=== PATIENT | female | born 1940 | race Caucasian/White ===

== ENCOUNTER 2023-07-29 13:05 | Emergency (ER) | payer MEDICARE, OTHER, SELFPAY ==
[2023-07-29 13:07] VITALS: BP 143/95
--- NOTE | 2023-07-29 13:49 | ED.GENMED ---
History of Present Illness
General
Chief Complaint: Musculo-Skeletal Complaint
Source: patient
Time Seen by Provider: 07/29/23 13:40
Travel History
Have you had any contact with someone who has COVID-19?: No
Do you have any symptoms of coronavirus? Fever > 100 degrees, chills, cough, shortness of breath, sore throat, loss of taste or smell, muscle aches, or headache?: No
History of Present Illness
History of Present Illness:
83-year-old female with past medical history of hyperlipidemia presenting to the emergency department after she was up on a ladder and while going down the ladder she thought she was at the bottom but was on the second rung and this caused her to
fall backwards and towards a cabinet and the ladder also fell on towards the patient injuring her left shoulder. Patient states she is having soreness to the shoulder but most of her pain is concentrated around the left rib and thoracic region and
pain that worsens with deep inspiration. Patient denies any head injury, loss consciousness, vomiting, visual changes or any other concerns. She did not take anything for pain prior to arrival and is declining anything for pain here. Denies any
previous history of injury or fracture. Patient is also denying any use of anticoagulants.
Past History
Past History
ED Past Medical History: GERD, Hypercholesterolemia and Other (Arthritis)
ED Past Surgical History: Cholecystectomy, Gynecological (Hysterectomy) and Orthopedic (Laminectomy, bilateral knee surgery, left foot surgery)
Social History
Tobacco: Non-smoker
Alcohol: None
Drug: None
Personal:
Living: with family
Employment: Retired
Family History
Family History: CAD
Review of Systems
Review of Systems
All Other Systems: ROS reviewed and negative except as documented in HPI and ROS
Phy Exam
Physical Exam
Physical Exam:
GENERAL: Alert , in no apparent distress at rest but appears more uncomfortable with deep inspiration or attempted movement
EYE: conjunctiva clear
NECK: Supple
ENT: o/p clr, mmm.
CARDIAC: Regular rate and rhythm
LUNGS: Clear breath sounds bilaterally, no acute respiratory distress, no wheezes/rales/rhonchi
Chest wall: Moderate tenderness around ribs 6 and 7 along the left posterolateral chest wall. Pain worsens with deep inspiration. No palpable bony step-off
NEUROLOGICAL: Alert and oriented
SKIN: Warm and dry, skin intact.
MUSCULOSKELETAL: well perfused. Left upper extremity: No obvious deformity, decreased range of motion of the left shoulder secondary some mild pain. No focal tenderness palpation
PSYCH: Normal and appropriate interaction.
Scores
Heart Failure Risk
Heart Failure Risk Score: Not Applicable
Heart Score for Chest Pain Patients
STEMI patient?: Not applicable
Withdrawal Assessment of Alcohol
Withdrawal Assessment Completed?: Not applicable
Course
Orders/Labs/Results
Orders:
Orders
07/29/23 13:11
CR Ribs-left 3 Vw W/pa Chest Urgent
Comment:
Reason For Exam: fall
Shoulder, Left, Trauma CR [CR Shoulder, Trauma - Left] Urgent
Comment:
Reason For Exam: fall
Vital Signs
Initial and Last Documented VS:
Initial Vital Signs
Temp Pulse BP Pulse Ox
98.2 F 68 143/95 99
07/29/23 13:07 07/29/23 13:07 07/29/23 13:07 07/29/23 13:07
Last Documented Vital Signs
Temp Pulse BP Pulse Ox
98.2 F 68 143/95 99
07/29/23 13:07 07/29/23 13:07 07/29/23 13:07 07/29/23 13:07
MDM/Problems Addressed
Differential Diagnosis Includes:
Rib fracture, rib contusion, pneumothorax, hemothorax, left shoulder contusion, fracture, dislocation
MDM/Problems Addressed:
83-year-old female presenting to the emergency department for evaluation of left shoulder and rib injury following an accidental fall from a ladder. Patient on initial exam was reading a book and appeared very comfortable at rest but pain was
certainly worse with palpation as well as deep inspiration. An x-ray of the left shoulder and rib series was ordered from triage. Reassessment following. Patient declining anything for pain.
*Radiology
Radiology exam reviewed: preliminary read by ED provider (Rib series shows 1/7 rib fracture but no pneumothorax or effusions. Shoulder x-ray unremarkable)
*Pulse Oximetry
Patient hypoxic: no
*Critical Care Note
Total Time (30-74mins, 75-104mins- exclusive of procedures): Not Applicable
Patient Management
Escalation/DeEscalation of care consider admission/obs:
Patient's x-ray does show 1/7 rib fracture on the left. No complications from this. Pain is seemingly well-controlled. Patient continues to decline any medications. She was provided with an incentive spirometer. Will follow-up with primary care
physician as an outpatient. Aware of return precautions but otherwise stable for discharge home.
ED Attending Note
-
Portions of this chart may have been created with voice recognition software.� Occasional wrong word or��sound alike� substitutions may have occurred due to the inherent limitations of voice recognition software.
Discharge Plan
Departure
Patient Disposition: Home (Routine Discharge)
Date of Disposition: 07/29/23
Time of Disposition: 15:29
Patient with high blood pressure during this ER visit?: Yes
Discharge Problem:
Left rib fracture, Left shoulder pain, Fall from ladder
Instructions: Rib Fracture (DC)
Prescriptions:
No Action
cetirizine 10 MG tablet
10 mg PO DAILY
aspirin 325 MG tablet
650 mg PO DAILY
ascorbic acid (vitamin C) [Vitamin C] 500 MG tablet
1,000 mg PO DAILY
Sarath's wort 300 MG capsule
600 mg PO DAILY
Referrals:
Niko Jonas MD [Family Provider] -
Interventions
Interventions:
*Risk Screen - Suicide Last Done: 07/29/23 14:14
*Neglect/Abuse Screening Last Done: 07/29/23 14:14
*Nursing Disposition Last Done: 07/29/23 15:37
Discharge Date and Time
Discharge Date/Time: 07/29/23 15:39
== END 2023-07-29 15:39 | disposition home or self-care (01) ==
LOC: EMR 13:05
PROVIDERS: EMERGENCY PHYSICIAN Emergency Medicine; FAMILY PHYSICIAN Family Medicine
DX: S22.32XA Fracture of one rib, left side, initial encounter for closed fracture (principal); M25.512 Pain in left shoulder; W11.XXXA Fall on and from ladder, initial encounter; E78.00 Pure hypercholesterolemia, unspecified; K21.9 Gastro-esophageal reflux disease without esophagitis; M19.90 Unspecified osteoarthritis, unspecified site; Z82.49 Family history of ischemic heart disease and other diseases of the circulatory system; Z90.49 Acquired absence of other specified parts of digestive tract; Z90.710 Acquired absence of both cervix and uterus
CPT/HCPCS: 99283; 71101; 73030

== ENCOUNTER → 2023-10-03 10:10 | Outpatient (REF) | payer MEDICARE, OTHER, SELFPAY ==
[2023-10-04 16:00] LABS: Endomysial IgA Antibody Titer <1:10 (<1:10)
[2023-10-06 00:01] LABS: IgA 216 mg/dl (70-400)
[2023-10-08 16:47] LABS: tTG IgA Antibody 5.6 EU/ml (0-19); tTG IgG Antibody 6.9 EU/ml (0-19)
== END ==
LOC: REG 10:10
PROVIDERS: ATTENDING PHYSICIAN Family Medicine
DX: R10.9 Unspecified abdominal pain (principal)
CPT/HCPCS: 36415; 82784; 83516; 86231

== ENCOUNTER → 2023-12-05 09:06 | Outpatient (REF) | payer MEDICARE, OTHER, SELFPAY ==
[2023-12-05 09:59] LABS: % Basophils 0.8 % (0-2); % Eosinophils 2.1 % (0-6); % Immature Granulocytes 0.6 % (0-0.5); % Lymphocytes 23.6 % (20.5-51.1); % Monocytes 9.2 % (1.7-9.3); % Neutrophils 63.7 % (42.2-75.2); Absolute Basophils 0.1 10^3/uL (0-0.2); Absolute Eosinophils 0.2 10^3/uL (0-0.7); Absolute Immature Granulocytes 0.1 10^3/uL (0-0.05); Absolute Lymphocytes 2.4 10^3/uL (1.2-3.4); Absolute Monocytes 0.9 10^3/uL (0.1-0.6); Absolute Neutrophils 6.5 10^3/uL (1.4-6.5); Hematocrit 47.1 % (37.0-47.0); Hemoglobin 15.2 g/dL (12.0-16.0); Mean Corp Hgb Conc. 32.3 g/dL (33.0-37.0); Mean Corpuscular Hgb 30.7 pg (27.0-31.0); Mean Corpuscular Volume 95.2 fL (81.0-99.0); Mean Platelet Volume 9.7 fL (7.4-10.4); Nucleated Red Blood Cells % 0 %; Platelet Count 277 10^3/uL (130-400); Red Blood Cell Count 4.95 10^6/uL (4.20-5.40); White Blood Cell Count 10.2 10^3/uL (4.8-10.8)
[2023-12-05 10:48] LABS: AST (SGOT) 32 U/L (14-36); Albumin 3.8 g/dl (3.5-5.0); Alkaline Phosphatase 95 U/L (38-126); Blood Urea Nitrogen 16 mg/dl (7-17); Calcium 9.7 mg/dl (8.4-10.2); Carbon Dioxide 25 mmol/L (22-30); Glucose 92 mg/dl (70-99); HDL Cholesterol 88 mg/dl; LDL Cholesterol, Calculated 149 mg/dl; Potassium 4.3 mmol/L (3.5-5.1); Total Cholesterol 264 mg/dl (50-199); Total Protein 6.5 g/dl (6.3-8.2); Triglyceride 139 mg/dl (10-149); Very Low Density Lipoprotein 27 mg/dl (0-30); eGFR > 60.00
[2023-12-05 11:01] LABS: ALT (SGPT) 23 U/L (0-35); Chloride 105 mmol/L (98-107); Sodium 138 mmol/L (135-145)
== END ==
LOC: REG 09:06
PROVIDERS: ATTENDING PHYSICIAN Family Medicine
DX: E78.2 Mixed hyperlipidemia (principal); J45.998 Other asthma; M54.50 Low back pain, unspecified; Z00.01 Encounter for general adult medical examination with abnormal findings; J30.9 Allergic rhinitis, unspecified; H69.80 Other specified disorders of Eustachian tube, unspecified ear; M81.0 Age-related osteoporosis without current pathological fracture
CPT/HCPCS: 36415; 80053; 80061; 85025

== ENCOUNTER → 2023-12-26 14:38 | Outpatient (REF) | payer MEDICARE, OTHER, SELFPAY | LOC: RAD 14:38 | PROVIDERS: ATTENDING PHYSICIAN Anesthesiology; FAMILY PHYSICIAN Family Medicine | DX: M16.11 Unilateral primary osteoarthritis, right hip (principal) | CPT/HCPCS: 73502 ==

== ENCOUNTER → 2024-01-09 14:55 | Outpatient (REF) | payer MEDICARE, OTHER, SELFPAY ==
[2024-01-11 17:56] LABS: SSA 52 (Ro)(ENA) Ab, IgG 1 AU/mL (0-40); SSA 60 (Ro)(ENA) Ab, IgG 0 AU/mL (0-40); SSB (La)(ENA) Ab, IgG 20 AU/mL (0-40)
[2024-01-11 18:14] LABS: ANA, IgG Reflex to HEp-2 Detected (None Detected)
== END ==
LOC: REG 14:55
PROVIDERS: FAMILY PHYSICIAN Family Medicine
DX: L81.7 Pigmented purpuric dermatosis (principal)
CPT/HCPCS: 36415; 86038; 86235

== ENCOUNTER → 2024-03-13 07:49 | Outpatient (REF) | payer MEDICARE, OTHER, SELFPAY | LOC: WDC 07:49 | PROVIDERS: ATTENDING PHYSICIAN Family Medicine | DX: Z12.31 Encounter for screening mammogram for malignant neoplasm of breast (principal) | CPT/HCPCS: 77063; 77067 ==

== ENCOUNTER 2024-03-22 06:15 | Inpatient (IN) | payer MEDICARE, OTHER, SELFPAY ==
[2024-03-13 09:49] LABS: Hematocrit 41.8 % (37.0-47.0); Hemoglobin 13.9 g/dL (12.0-16.0); Mean Corp Hgb Conc. 33.3 g/dL (33.0-37.0); Mean Corpuscular Hgb 30.9 pg (27.0-31.0); Mean Corpuscular Volume 92.9 fL (81.0-99.0); Mean Platelet Volume 10.3 fL (7.4-10.4); Platelet Count 230 10^3/uL (130-400); Red Cell Dist. Width 12.5 % (11.5-14.5); White Blood Cell Count 7.3 10^3/uL (4.8-10.8)
[2024-03-13 10:21] LABS: ALT (SGPT) 15 U/L (0-35); AST (SGOT) 27 U/L (14-36); Albumin 3.7 g/dl (3.5-5.0); Alkaline Phosphatase 73 U/L (38-126); Blood Urea Nitrogen 16 mg/dl (7-17); Calcium 9.6 mg/dl (8.4-10.2); Carbon Dioxide 23 mmol/L (22-30); Chloride 106 mmol/L (98-107); Glucose 102 mg/dl (70-99); Potassium 3.8 mmol/L (3.5-5.1); Sodium 141 mmol/L (135-145); Total Bilirubin 0.6 mg/dl (0.2-1.3); eGFR > 60.00
[2024-03-22] VITALS (18 sets, daily range): BP systolic 45–157; BP diastolic 44–78; PULSE 83; O2SAT 100; BMI 26.5
[2024-03-22] MEDS: TYLENOL 1000 MG PO ×3 (07:04→23:49)
[2024-03-22] MEDS: NORMOSOL-R/PLASMALYTE-A 1000 IV ×2 (07:05→16:00)
[2024-03-22] MEDS: ZOFRAN 4 MG IV (11:59)
[2024-03-22] MEDS: SUBLIMAZE 50 MCG IV (12:03)
--- NOTE | 2024-03-22 12:40 | OR.RPT ---
Operative Report
Operative Report
Surgeon: Daniele Khan MD
Advertising Editor: Aramis SOTO
Preoperative Diagnosis: Lumbar spinal stenosis, Degenerative spondylolisthesis L4-5
Postoperative Diagnosis: Same
Procedure:
1. Lumbar laminectomy L3, L4, L5
2. Posterolateral arthrodesis with allograft (DBM) L3-5
3. Posterior segmental instrumentation L3-5 (Globus)
Anesth: General endotracheal
EBL: 100 cc
Indications for procedure: This patient is a 84 year old female with a long standing history of bilateral radiating leg painworst with standing and walking and disabled to the home in terms of mobility. Her MRI demonstrated spinal stenosis from
L3-5 and a degenerative spondylolisthesis L4-5. Her symptoms had failed to respond to activity modification and oral medications and injection therapy, therefore surgical treatment offered. Patient understood the risk benefits and alternatives of
surgical treatment including risks of anesthesia, infection, nerve damage, blood vessel damage, need for further surgery, failure of instrumentation and fusion and elected to proceed after undergoing medical clearance.
Description of procedure: Patient was identified in the preoperative holding area, consent verified and marked. Patient was taken to the OR by the anesthesia and surgical service. GETA was induced and pt intubated. A fleming catheter placed. She
was positioned prone with bony prominences well padded and her arms in a superman position with abdomen hanging free. Her head rested on a foam clayton with no pressure on the eyes or tube. Preoperative fluoro images demonstrated good positioning
of her lumbar spine and localized the incision. Patient was then prepped and draped in standard fashion and hard stop surgical timeout performed.
A skin incision was then made over the presumed L3-5 space with a knife and bovie used to created hemostasis. The fascia was sharply dissected and the subperiosteal plane developed from L3 to L5 Localizing XR showed exposure of the L3-5 level as
intended. Deep retractors were then placed.
The decompression began with removal of the spinous processes between L3 and L5 with a Leksell rongeur, followed by thinning of the lamina with a neural claudio. This allowed appreciation of the ligamentum flavum between L3-4 and L4-5 which was teased
off with a microcurette. The remaining laminectomy was then performed with a kerrison rongeur and the dural tube and bilateral traversing L4 and L5 nerve roots decompressed allowing free and mobile nerve roots after decompression.
The spine was then instrumented with pedicle screw fixation into the L3, L4 and L5 levels with technique consisting of a claudio, followed by a pedicle probe and tapping with the appropriate sized instrument. The pedicle screws all had excellent
purchase and noted on fluoroscopy to be well placed into the bone. A well contoured quintin was then chosed and placed down on either side with set screws placed allowing reduction of the quintin. Final AP and lateral fluoroscopy showed good positioning
of all hardware.
Next the wound bed was irrigated with 500 mL of normal saline and hemostasis ensured. The posterior lateral exposed bone edges were decorticated with a neural claudio and fusion bed packed with salvage autograft and additional DBM allograft. A
hemovac drain was then placed. THe wound was closed in a sequential fashion with 0, and 2-0, 3-0 monocryl for the skin. THe patient was then positioned back supine onto a hospital table and extubated without difficulty. The patient was then woken
up and extubated without difficulty. The patient had purposeful movement of all extremities prior to leaving the operating room.
I attest I was present for and performed all critical portions of this procedure.
[2024-03-22] MEDS: COMPAZINE 5 MG IV (13:16)
--- NOTE | 2024-03-22 13:45 | PTCARENOTE ---
Pt received from the PACU via bed. Transport was w/o incident. Pt is drowsy, and easily arousable, pulse ox 99% on 2L via nc. VS: 97.6-73-16-98/44. Pt's lumbar to mid back with surgical dressing C/D/I, hemovac drain to sl left back, intact,
draining sanquinous fluid. Pt instructed on plan of care, Pt verbalized understanding of instructions, Call davies is within reach.
[2024-03-22] MEDS: SKELAXIN 800 MG PO ×2 (16:22→23:54)
[2024-03-22] MEDS: ZYRTEC 10 MG PO (16:22)
[2024-03-22] MEDS: ANCEF 5 IV ×2 (16:23→23:54)
[2024-03-22] MEDS: ULTRAM 50 MG PO (18:07)
--- NOTE | 2024-03-22 22:00 | PTCARENOTE ---
Pt. came onto floor post lami with instrumented L3-5 fusion with indwelling urinary catheter. No orders noted upon nightshift chart check. Ortho PA contacted and instructed to remove catheter. Catheter removed at 2030 and pt. has been voiding in BSC
appropriately. Nightshift chart checks also ordered for patient to be out of bed with a back brace. Patient states she was never fitted with a back brace and therefore did not bring one to the hospital. Surgeon Dr. Khan contacted and clarified that
the patient does not need a back brace during her hospital stay. Orders noted in paper chart.
[2024-03-22] MEDS: TUMS CHEWABLE TABLET 400 MG PO (23:47)
[2024-03-23] VITALS (9 sets, daily range): BP systolic 94–131; BP diastolic 46–72; PULSE 70–78; O2SAT 100
[2024-03-23] MEDS: NORMOSOL-R/PLASMALYTE-A 1000 IV ×2 (02:12→12:01)
[2024-03-23] MEDS: ULTRAM PO ×2 (05:03→05:10)
[2024-03-23] MEDS: TYLENOL 1000 MG PO ×3 (05:03→17:48)
[2024-03-23 06:55] LABS: Hematocrit 29.1 % (37.0-47.0); Hemoglobin 9.9 g/dL (12.0-16.0)
[2024-03-23] MEDS: SKELAXIN 800 MG PO (08:28)
[2024-03-23] MEDS: ZYRTEC 10 MG PO (08:28)
[2024-03-23 08:33] LABS: Blood Urea Nitrogen 9 mg/dl (7-17); Calcium 8.7 mg/dl (8.4-10.2); Carbon Dioxide 25 mmol/L (22-30); Chloride 104 mmol/L (98-107); Estimated Creatinine Clearance 63 ml/min; Glucose 84 mg/dl (70-99); Sodium 137 mmol/L (135-145); eGFR > 60.00
--- NOTE | 2024-03-23 10:31 | CM ---
Reviewed the chart notes and spoke with the patient and her daughter at the bedside. The patient's daughter resides with the patient in a two story home with four steps to enter. The patient has a half bath on first level. The patient's stairs to
the second level are a group of steps with a railing, then three curved steps, and then a final flight with railing to second level. The patient has a rolling walker, raised toilet seat, and a tub seat. The patient's daughter works multimedia educational specialist
outside the home. Both daughter and patient expressed concern for the patient being alone and how they would get the patient to physical therapy. OT and PT to evaluate. Patient would need qualifying stay under Medicare guidelines for SNF
otherwise would be private pay. Patient nor daughter are able to financially hire anyone to come to the home to check on patient. Per daughter, she has exhausted her vacation days. CM continues to be available to patient/family and is monitoring
medical plan for needs at discharge.
Plan: Discharge plans will depend on the patient's progress.
--- NOTE | 2024-03-23 11:51 | W.PN.ORTHO ---
Addendum entered and electronically signed by Sofia Abdi PA-C 03/23/24 16:14:
Acute p/o blood loss anemia
Original Note:
Today's Communication / Plan
-
d/c when stable
Assessment
.
Distal Motor Intact: Yes
Dressing:
Clean, dry and intact.
Assessment:
Orthostasis-SBP dropping from 130s to 21o-pccbhqsrual-wmfgstkwd to anesthesia, opioids and anemia--bolus IVF + Midodrine w/ parameter-minimize pain meds
Post-op blood loss anemia-keep drain overnight-Tranexamic acid x 1 dose and repeat hgb in am
Plan
.
Surgery / Date: L3-4-5 lami w/ allograft + inst Dr. Khan 03/22/24
Activity:
Out of bed.
PT/OT
Subjective
.
.:
Dizzy when standing
Vital Signs and Labs
.
Vital Signs and Labs:
Lab Results
03/23/24 04:54
03/23/24 07:20
Temp Pulse Resp BP Pulse Ox
97.4 F 63 16 115/63 99
03/23/24 11:38 03/23/24 11:38 03/23/24 11:38 03/23/24 11:38 03/23/24 11:38
Physical Exam
-
HEENT: No pallor, cyanosis, or jaundice. Throat clear.
NECK: Supple. No JVD.
RESPIRATORY: Lungs clear to auscultation.
CVS: S1, S2 normal. RRR.� No murmur, rub or gallop.
ABDOMEN: Soft, non-tender. No distension. BS+/normal.
EXTREMITIES: strength equal, no calf pain with palpation
CLINICAL SERVICES DIRECTOR: AOx3. No focal deficits. costing manager grossly intact
[2024-03-23] MEDS: CYKLOKAPRON 1300 MG PO (12:01)
[2024-03-23] MEDS: ProAmatine PO (12:26)
[2024-03-23] MEDS: ProAmatine 5 MG PO ×2 (13:13→17:48)
--- NOTE | 2024-03-23 13:34 | PN.CDI ---
CDI
- -
CDI:
Physician Documentation Request
Admit Date: 03/22/24 06:15
Dear Doctor/PA,
Please review the following and provide your response in the progress notes.
Clinical Indicators:
Pt admitted with lumbar spinal stenosis s/p Laminectomy
Progress note 03/23, ' Orthostasis-SBP dropping from 130s to 82o-yhyrfhhixmo-yputnelwt to anesthesia, opioids and anemia--...Post-op blood loss anemia....Tranexamic acid x 1 dose and repeat hgb in am....'
Clarify which of the following accurately represents the acuity of the ( Blood loss Anemia ).
Acute
Chronic
Other
Use of terms such as suspected, likely, concern for, or probable (associated with a specific diagnosis that is being evaluated, monitored, or treated as if it exists) are acceptable and can be coded in the inpatient setting, when documented at the
time of discharge.
Thank you,
Iona Manuel RN
CDI Specialist
[facility]
Please use your independent medical judgment in providing your response.
--- NOTE | 2024-03-23 16:09 | W.DS.TRANS ---
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
-
Discharge Instructions:
Sleep Apnea Risk Low
Discharge Diagnosis/Procedures L3-4-5 lami w/ allograft + inst Dr. Khan 03/22/24
Diet As tolerated
Activity No strenuous activity
Driving Restrictions No driving
Instructions:
Stand-Alone Forms: [facility]
Changes to Home Medications: Yes
Discharge Medications:
DC Medications w/original date entered in [facility]
cetirizine 10 mg tablet 10 mg PO DAILY Allergies 02/19/19
cholecalciferol (vitamin D3) 25 mcg (1,000 unit) tablet (Vitamin D3) 25 mcg PO DAILY Supplement 03/16/24
fluticasone propionate 50 mcg/actuation nasal spray,suspension 1 spray intranasal DAILY PRN congestion 03/16/24
glycerin 1 drp ophthalmic (eye) HS Eye Condition 03/16/24
acetaminophen 325 mg capsule (Tylenol) 650 mg (2 x 325 mg) PO QID #2 caps 03/23/24
acetaminophen 500 mg tablet 1,000 mg (2 x 500 mg) PO QID #0 tabs 03/23/24
docusate sodium 100 mg capsule (Colace) 100 mg PO BID stool softner #1 cap 03/23/24
gabapentin 300 mg capsule 300 mg PO HS sleep/pain #10 caps 03/23/24�
magnesium hydroxide 400 mg/5 mL oral suspension (Milk of Magnesia) 30 ml PO HS PRN Constipation #1 mL 03/23/24�
sennosides 8.6 mg tablet (Senokot) 17.2 mg (2 x 8.6 mg) PO BID laxative #2 tabs 03/23/24�
tramadol 50 mg tablet 50 mg PO Q6H PRN 1 tab moderate pain, 2 if severe #30 tabs 03/23/24�
Home Medication Changes
gabapentin 300 mg capsule 300 mg PO HS sleep/pain #10 caps 03/23/24�
magnesium hydroxide 400 mg/5 mL oral suspension (Milk of Magnesia) 30 ml PO HS PRN Constipation #1 mL 03/23/24�
sennosides 8.6 mg tablet (Senokot) 17.2 mg (2 x 8.6 mg) PO BID laxative #2 tabs 03/23/24�
tramadol 50 mg tablet 50 mg PO Q6H PRN 1 tab moderate pain, 2 if severe #30 tabs 03/23/24�
Pending Results: No
[2024-03-23] MEDS: TYLENOL PO (23:13)
[2024-03-24] MEDS: TYLENOL 1000 MG PO ×2 (03:44→08:19)
--- NOTE | 2024-03-24 04:06 | DOWNTIME ---
There was a [employer] Department Chair Downtime on 03/24/2024 from 0100 to 03/24/2024 at 0300. Downtime documentation of patient's care, including medication administrations, has been reconciled in the electronic record per guidelines. Refer to the
patient's paper chart under the miscellaneous tab to see printed paper medication records and downtime forms.
[2024-03-24 06:18] LABS: Hemoglobin 9.5 g/dL (12.0-16.0)
[2024-03-24 07:57] VITALS: BP 123/58
--- NOTE | 2024-03-24 08:12 | CM ---
Addendum entered by Liliana Elliott RN 03/24/24 09:46:
Patient to be discharged today to home. [facility] has reached out to patient and will deliver bed today. Discussed VN services, VN selected. Referral sent via [employer] [facility]. Patient's daughter will provide transportation.
Original Note:
Reviewed the chart notes. Clinical with script for electric hospital bed faxed to [facility]. Per Radhika, they have received request and will reach out to the patient. This will be private pay. CM continues to be available to
patient/family and is monitoring medical plan for needs at discharge.
Plan: Discharge to home when medically stable.
[2024-03-24] MEDS: ProAmatine 5 MG PO (08:19)
[2024-03-24] MEDS: ZYRTEC 10 MG PO (08:20)
[2024-03-24 09:17] VITALS: BP 115/55; BP 121/57; PULSE 74; O2SAT 99
--- NOTE | 2024-03-24 09:34 | W.PN.SP ---
Today's Communication / Plan
-
None
Assessment / Plan
-
POD #2 s/p L3-5 decompression and fusion
Doing well, cleared PT and d/c criteria for home with services arranged.
HV drain removed today
Post-op XRs stable appearance of instrumented fusion L3-5
Discharge today - Follow up in the office arranged for 2-3 weeks.
Subjective / Objective
Subjective Data
Patient comfortable overnight. Pain in the back and bilateral hip region responding well to medication. No leg pain.
Objective Data
Vital Signs
Temp Pulse Resp BP Pulse Ox
98.7 F 75 16 123/58 98
03/24/24 07:57 03/24/24 07:57 03/24/24 07:57 03/24/24 07:57 03/24/24 07:57
Intake and Output
03/23/24 03/24/24 03/25/24
06:59 06:59 06:59
Intake Total 1920 / 1920 4200 / 4200
Output Total 1665 / 1665 270 / 270
Balance 255 / 255 3930 / 3930
Intake:
Oral fluids 970 / 970 2400 / 2400
IV fluids (Total) 950 / 950 1800 / 1800
normosol 500 / 500
Output:
Drain Output (Total) 365 / 365 270 / 270
Right Middle Back Hemovac 365 / 365 270 / 270
Urine, Wild 1300 / 1300
Other:
Number of approximated MODERATE 1 2
amounts of urine
Number of approximated LARGE 2
amounts of urine
Lab Data
03/24/24 05:23
03/23/24 07:20
Physical Exam
-
NAD, AAOx3
Incision c/d/i - HV drain removed and dry dressing applied
5/5 strength in the bilateral Q/IP/EHL/TA/GSC
SILT L2-S1
w/wp
[2024-03-24 10:16] VITALS: BP 108/63; PULSE 80
[2024-03-24 10:25] VITALS: BP 124/67
== END 2024-03-24 10:48 | disposition home health service (06) | DRG 460 ==
LOC: 2 SOUTH 06:15
PROVIDERS: Physician Assistant Medical; ADMITTING PHYSICIAN Orthopaedic Surgery; FAMILY PHYSICIAN Family Medicine
PROC: 0QB00ZZ Excision of Lumbar Vertebra, Open Approach (ICD-10-PCS; 2024-03-22)
PROC: 0SG10AJ Fusion of 2 or more Lumbar Vertebral Joints with Interbody Fusion Device, Posterior Approach, Anterior Column, Open Approach (ICD-10-PCS; 2024-03-22)
DX: M48.061 Spinal stenosis, lumbar region without neurogenic claudication (principal); D62 Acute posthemorrhagic anemia; M43.16 Spondylolisthesis, lumbar region
CPT/HCPCS: 36415; 72100; 76000; 80048; 80053; 85014; 85018; 85027; 86850; 86900; 86901; 87070; 93005; 97116; 97162; 97166; 97530; 97535

== ENCOUNTER → 2024-06-11 09:53 | Outpatient (REF) | payer MEDICARE, OTHER, SELFPAY | LOC: RAD 09:53 | PROVIDERS: ATTENDING PHYSICIAN Family Medicine | DX: R60.0 Localized edema (principal) | CPT/HCPCS: 93970 ==

== ENCOUNTER → 2024-06-26 08:57 | Outpatient (REF) | payer MEDICARE, OTHER, SELFPAY ==
[2024-06-26 10:55] LABS: Blood Urea Nitrogen 18 mg/dl (7-17); Calcium 9.3 mg/dl (8.4-10.2); Carbon Dioxide 25 mmol/L (22-30); Chloride 101 mmol/L (98-107); Glucose 94 mg/dl (70-99); Potassium 4.5 mmol/L (3.5-5.1); Sodium 131 mmol/L (135-145); eGFR > 60.00
[2024-06-26 12:59] LABS: Glycohemoglobin (HgbA1c) 5.8 % (4.0-5.6)
== END ==
LOC: REG 08:57
PROVIDERS: ATTENDING PHYSICIAN Family Medicine
DX: R73.09 Other abnormal glucose (principal)
CPT/HCPCS: 36415; 80048; 83036

== ENCOUNTER → 2024-09-08 09:13 | Outpatient (REF) | payer MEDICARE, OTHER, SELFPAY ==
[2024-09-08 11:03] LABS: Blood Urea Nitrogen 13 mg/dl (7-17); Calcium 9.6 mg/dl (8.4-10.2); Carbon Dioxide 24 mmol/L (22-30); Chloride 103 mmol/L (98-107); Glucose 91 mg/dl (70-99); Potassium 4.5 mmol/L (3.5-5.1); Sodium 136 mmol/L (135-145); eGFR > 60.00
== END ==
LOC: REG 09:13
PROVIDERS: ATTENDING PHYSICIAN Family Medicine
DX: E87.1 Hypo-osmolality and hyponatremia (principal)
CPT/HCPCS: 36415; 80048

== ENCOUNTER → 2024-10-25 11:08 | Outpatient (REF) | payer MEDICARE, OTHER, SELFPAY | LOC: PAVMRI 11:08 | PROVIDERS: ATTENDING PHYSICIAN Physician Assistant; FAMILY PHYSICIAN Family Medicine | DX: M54.12 Radiculopathy, cervical region (principal) | CPT/HCPCS: 72156; A9575 ==

== ENCOUNTER → 2025-02-25 08:39 | Outpatient (REF) | payer MEDICARE, OTHER, SELFPAY | LOC: WDC 08:39 | PROVIDERS: ATTENDING PHYSICIAN Family Medicine | DX: N64.4 Mastodynia (principal); M79.622 Pain in left upper arm | CPT/HCPCS: 76642 ==

== ENCOUNTER → 2025-03-17 18:47 | Outpatient (REF) | payer MEDICARE, OTHER, SELFPAY | LOC: WDC 18:47 | PROVIDERS: ATTENDING PHYSICIAN Family Medicine | DX: Z12.31 Encounter for screening mammogram for malignant neoplasm of breast (principal) | CPT/HCPCS: 77063; 77067 ==